=== PATIENT | female | born 1950 | race Caucasian/White ===

== ENCOUNTER 2017-02-10 15:00 | Inpatient (IN) | payer OTHER ==
[~2017-02-10] VITALS: Ht 154.9 cm; Wt 109.1 kg
[2017-02-16] MEDS ORDERED: LOVA40TA2 PO (14:18)
[2017-02-16] MEDS ORDERED: ROSU10TA PO (14:18)
[2017-02-16] MEDS ORDERED: LANS30CA16 PO (14:18)
[2017-02-16] MEDS ORDERED: HYDR-63 PO (14:18)
[2017-02-16] MEDS ORDERED: OMEP-110 PO (14:18)
[2017-02-16 14:19] VITALS: BP 154/70
[2017-02-24] MEDS ORDERED: BUPIVACAINE/PF 0.25% ONE (06:01)
[2017-02-24] MEDS ORDERED: BUPIVACAINE/PF-EPI 0.5% 1:200K ONE (06:01)
[2017-02-24] MEDS ORDERED: THROMBIN 5,000 UNIT VIAL TP ONE (06:01)
[2017-02-24] MEDS ORDERED: BACITRACIN 50,000 UNIT ONE (06:02)
[2017-02-24] MEDS ORDERED: LACTATED RINGERS 1,000 ML IV SCH (06:13)
[2017-02-24] MEDS ORDERED: KETAMINE 10 MG/ML, 20ML ONE (06:39)
[2017-02-24] MEDS ORDERED: FENTANYL PF 250 MCG/5ML ONE (06:40)
[2017-02-24] MEDS ORDERED: PROPOFOL 10 MG/ML, 20ML ONE (07:03)
[2017-02-24] MEDS ORDERED: ONDANSETRON 2MG/ML, 2ML ONE (07:03)
[2017-02-24] MEDS ORDERED: METOCLOPRAMIDE 5 MG/ML, 2ML ONE (07:03)
[2017-02-24] MEDS ORDERED: PROPOFOL 10 MG/ML, 50ML ONE (07:03)
[2017-02-24] MEDS ORDERED: ROCURONIUM 10 MG/ML ONE (07:03)
[2017-02-24] MEDS ORDERED: CEFAZOLIN 1,000 MG ONE (07:03)
[2017-02-24] MEDS ORDERED: SUCCINYLCHOLINE 20 MG/ML, 10ML ONE (07:03)
[2017-02-24] MEDS ORDERED: LABETALOL 5MG/ML, 20ML IV PRN (08:30)
[2017-02-24] MEDS ORDERED: hydrALAzine 20 MG/ML, 1ML IV PRN (08:30)
[2017-02-24] MEDS ORDERED: MIDAZOLAM 1 MG/ML, 2ML IV PRN (08:30)
[2017-02-24] MEDS ORDERED: ONDANSETRON 2MG/ML, 2ML IVPush PRN ×2 (08:30→10:30)
[2017-02-24] MEDS ORDERED: FENTANYL PF 100 MCG/2ML IV PRN (08:30)
[2017-02-24] MEDS ORDERED: OXYcodone 5 MG/5 ML ORAL.SOL UDC PO PRN (08:30)
[2017-02-24] MEDS ORDERED: FENTANYL PF 100 MCG/2ML ONE (09:49)
[2017-02-24] MEDS ORDERED: FENTANYL PF 100 MCG/2ML EPIDPUSH ONE (09:52)
[2017-02-24] MEDS ORDERED: morphine SULFATE 10 MG/ML, 1ML IVPush PRN (10:30)
[2017-02-24] MEDS ORDERED: BISACODYL 10 MG SUPP PR PRN (10:30)
[2017-02-24] MEDS ORDERED: CYCLOBENZAPRINE 10 MG TABLET PO PRN (10:30)
[2017-02-24] MEDS ORDERED: SENNA/DOCUSATE TABLET PO PRN (10:30)
[2017-02-24] MEDS ORDERED: PROMETHAZINE 25 MG/ML, 1ML IM PRN (10:30)
[2017-02-24] MEDS ORDERED: DIPHENHYDRAMINE 50 MG/ML, 1ML IVPush PRN (10:30)
[2017-02-24] MEDS ORDERED: PHARMACY MAY ADJ FOR RENAL FX MC PRN (10:30)
[2017-02-24] MEDS ORDERED: HYDROmorphone 2 MG/ML, 1ML ONE (10:45)
[2017-02-24] MEDS: HYDROmorphone 1 MG/ML, 1ML IV PRN ×5 (10:57→11:41)
[2017-02-24] MEDS: D5%-0.9% NACL+KCL 20MEQ 1,000 ML IV SCH ×2 (13:51→23:43)
[2017-02-24] MEDS: OXYcodone IR 5MG TABLET PO PRN ×4 (14:57→23:29)
[2017-02-24] MEDS: CEFAZOLIN PMX 1GM/50ML 50 ML IVPB SCH ×2 (16:31→23:43)
[2017-02-24] MEDS: LOVASTATIN 40 MG TABLET PO SCH (19:56)
[2017-02-24] MEDS: ATORVASTATIN 20 MG TABLET PO SCH (19:56)
[2017-02-24] MEDS: SODIUM CHLORIDE FLUSH 10ML SYR IVF SCH (19:57)
[2017-02-24 20:24] VITALS: BP 117/67
[2017-02-24 23:20] VITALS: BP 106/64
[2017-02-25 03:25] VITALS: BP 103/66
[2017-02-25] MEDS: OXYcodone IR 5MG TABLET PO PRN ×6 (03:49→21:11)
[2017-02-25 06:58] VITALS: BP 121/78
[2017-02-25] MEDS: SODIUM CHLORIDE FLUSH 10ML SYR IVF SCH ×2 (08:42→20:19)
[2017-02-25] MEDS: OMEPRAZOLE 20 MG CAPSULE.DR PO SCH (08:42)
[2017-02-25] MEDS: PANTOPROZOLE 40MG TABLET PO SCH (08:46)
[2017-02-25] MEDS: D5%-0.9% NACL+KCL 20MEQ 1,000 ML IV SCH ×2 (11:52→20:00)
[2017-02-25 13:28] VITALS: BP 97/58
[2017-02-25 18:26] VITALS: BP 105/63
[2017-02-25] MEDS: LOVASTATIN 40 MG TABLET PO SCH (21:00)
[2017-02-25] MEDS: ATORVASTATIN 20 MG TABLET PO SCH (21:00)
[2017-02-26 00:49] VITALS: BP 107/66
[2017-02-26] MEDS: OXYcodone IR 5MG TABLET PO PRN ×5 (01:14→20:41)
[2017-02-26 06:35] VITALS: BP 101/66
[2017-02-26] MEDS: OMEPRAZOLE 20 MG CAPSULE.DR PO SCH (08:57)
[2017-02-26] MEDS: PANTOPROZOLE 40MG TABLET PO SCH (08:58)
[2017-02-26 13:30] VITALS: BP 106/67
[2017-02-26] MEDS: MAGNESIUM CITRATE 300ML ORAL SOL PO PRN (16:00)
[2017-02-26] MEDS: ATORVASTATIN 20 MG TABLET PO SCH (20:02)
[2017-02-26] MEDS: LOVASTATIN 40 MG TABLET PO SCH (20:02)
[2017-02-26 20:05] VITALS: BP 95/49
[2017-02-27] MEDS: OXYcodone IR 5MG TABLET PO PRN ×5 (02:10→18:16)
[2017-02-27 02:58] VITALS: BP 102/58
[2017-02-27 06:57] VITALS: BP 127/68
[2017-02-27] MEDS ORDERED: CYCL-259 PO (09:11)
[2017-02-27] MEDS ORDERED: OXYC5CAP4 PO (09:11)
[2017-02-27] MEDS ORDERED: DOXY100C2 PO (09:14)
[2017-02-27] MEDS: PANTOPROZOLE 40MG TABLET PO SCH (09:25)
[2017-02-27] MEDS: OMEPRAZOLE 20 MG CAPSULE.DR PO SCH (09:25)
[2017-02-27] MEDS: MAGNESIUM CITRATE 300ML ORAL SOL PO PRN (11:03)
[2017-02-27 14:30] VITALS: BP 116/67
[2017-02-27] MEDS ORDERED: KETOROLAC 30 MG/1 ML IM ONE (17:00)
== END 2017-02-27 19:30 | disposition home or self-care (01) | DRG 460 ==
LOC: ORIP 02-24 05:37 → 4NOR 02-24 12:22
PROVIDERS: ADMIT Neurological Surgery; ATTEND Neurological Surgery
PROC: 01NR0ZZ Release Sacral Nerve, Open Approach (ICD-10-PCS; 2017-02-24)
PROC: 4A11X4G Monitoring of Peripheral Nervous Electrical Activity, Intraoperative, External Approach (ICD-10-PCS; 2017-02-24)
PROC: 01NB0ZZ Release Lumbar Nerve, Open Approach (ICD-10-PCS; 2017-02-24)
PROC: 0ST20ZZ Resection of Lumbar Vertebral Disc, Open Approach (ICD-10-PCS; 2017-02-24)
PROC: 00UT0JZ Supplement Spinal Meninges with Synthetic Substitute, Open Approach (ICD-10-PCS; 2017-02-24)
PROC: 0SG00AJ Fusion of Lumbar Vertebral Joint with Interbody Fusion Device, Posterior Approach, Anterior Column, Open Approach (ICD-10-PCS; principal; 2017-02-24 07:00)
DX: M48.06 Spinal stenosis, lumbar region (principal); Z68.42 Body mass index [BMI] 45.0-49.9, adult; M43.16 Spondylolisthesis, lumbar region; E66.01 Morbid (severe) obesity due to excess calories; G89.29 Other chronic pain; F17.210 Nicotine dependence, cigarettes, uncomplicated; K21.9 Gastro-esophageal reflux disease without esophagitis; M54.17 Radiculopathy, lumbosacral region; Z88.2 Allergy status to sulfonamides; Z88.6 Allergy status to analgesic agent; Z88.1 Allergy status to other antibiotic agents; Z88.7 Allergy status to serum and vaccine; Z88.8 Allergy status to other drugs, medicaments and biological substances; M48.07 Spinal stenosis, lumbosacral region
CPT/HCPCS: 36415; 72100; 82962; 85025; C1713; J0690; J1170; J2405; J2704; J3010; J3490; C1751; C1762; C1781; J0330; J2765; J3480

== ENCOUNTER → 2017-02-16 | Outpatient (CLI) | payer OTHER ==
[~2017-02-16] MED LIST: HYDR-63 PO; LANS30CA16 PO; LOVA40TA2 PO; OMEP-110 PO; ROSU10TA PO
[2017-02-16 15:03] LABS: PATH.CAST-FLAG NOT PRESENT; SPERM-FLAG NOT PRESENT; SRC-FLAG NOT PRESENT; XTAL-FLAG NOT PRESENT; YLC-FLAG NOT PRESENT
[2017-02-16 15:11] LABS: BLOOD UREA NITROGEN 18 mg/dL (7-18)
== END | disposition home or self-care (01) ==
LOC: STAR 13:20
PROVIDERS: ATTEND Neurological Surgery
DX: Z01.818 Encounter for other preprocedural examination (principal); J18.9 Pneumonia, unspecified organism; M51.36 Other intervertebral disc degeneration, lumbar region; R79.1 Abnormal coagulation profile
CPT/HCPCS: 36415; 71020; 80048; 81001; 85025; 85610; 85730; 87077; 87086

== ENCOUNTER → 2017-02-22 | Outpatient (CLI) | payer OTHER ==
[~2017-02-22] MED LIST changes: +REGADENOSON 0.4 MG/5 ML SYRINGE ONE
== END | disposition home or self-care (01) ==
LOC: CFH 11:46
PROVIDERS: ATTEND Internal Medicine Cardiovascular Disease
DX: Z01.810 Encounter for preprocedural cardiovascular examination (principal)
CPT/HCPCS: 78452; 93017; A9502; J2785

== ENCOUNTER → 2017-06-13 | Outpatient (CLI) | payer OTHER ==
[~2017-06-13] MED LIST changes: +CYCL-259 PO; +DOXY100C2 PO; -LANS30CA16 PO; +LANS30CA60 PO; +OXYC5CAP2 PO; -REGADENOSON 0.4 MG/5 ML SYRINGE ONE
== END | disposition home or self-care (01) ==
LOC: RAD 09:36
PROVIDERS: ATTEND Physician Assistant Surgical
DX: M51.36 Other intervertebral disc degeneration, lumbar region (principal); M43.16 Spondylolisthesis, lumbar region; M47.896 Other spondylosis, lumbar region; I70.0 Atherosclerosis of aorta
CPT/HCPCS: 72110

== ENCOUNTER 2017-10-28 05:29 | Day surgery (SDC) | payer OTHER ==
[~2017-10-28] VITALS: Ht 154.9 cm; Wt 101.0 kg
[2017-10-28] MEDS ORDERED: LACTATED RINGERS 1,000 ML IV SCH (05:56)
[2017-10-28 06:19] VITALS: BP 130/82
[2017-10-28] MEDS ORDERED: FENTANYL PF 100 MCG/2ML ONE ×2 (06:46→07:20)
[2017-10-28] MEDS ORDERED: CEFAZOLIN 1,000 MG ONE (06:54)
[2017-10-28] MEDS ORDERED: PROPOFOL 10 MG/ML, 20ML ONE (06:54)
[2017-10-28] MEDS ORDERED: DEXAMETHASONE 4 MG/ML, 5ML ONE (06:54)
[2017-10-28] MEDS ORDERED: ONDANSETRON 2MG/ML, 2ML ONE (06:54)
[2017-10-28] MEDS ORDERED: OXYcodone 5 MG/5 ML ORAL.SOL UDC PO PRN (07:00)
[2017-10-28] MEDS ORDERED: HYDROcodone/APAP 7.5-325MG/15ML UDC PO PRN (07:00)
[2017-10-28] MEDS ORDERED: FENTANYL PF 100 MCG/2ML IV PRN (07:00)
[2017-10-28] MEDS ORDERED: ONDANSETRON 2MG/ML, 2ML IVPush PRN (07:00)
[2017-10-28] MEDS ORDERED: ACETAMINOPHEN 325 MG TABLET PO PRN (07:00)
[2017-10-28] MEDS ORDERED: HYDROmorphone 1 MG/ML, 1ML IV PRN (07:00)
[2017-10-28] MEDS ORDERED: OXYcodone 5 MG/5 ML ORAL.SOL UDC ONE (07:36)
== END 2017-10-28 09:05 | disposition home or self-care (01) ==
LOC: OUT 05:29
PROVIDERS: ATTEND Podiatrist
DX: L60.0 Ingrowing nail (principal); E11.9 Type 2 diabetes mellitus without complications; K21.9 Gastro-esophageal reflux disease without esophagitis; E66.01 Morbid (severe) obesity due to excess calories; Z68.41 Body mass index [BMI] 40.0-44.9, adult
CPT/HCPCS: 11750; 82962; J0690; J1100; J2405; J2704; J3010; J7120

== ENCOUNTER → 2018-05-18 | Outpatient (CLI) | payer OTHER ==
[~2018-05-18] MED LIST changes: +OMNIPAQUE 350 MG/ML, 100ML BOTTLE ONE
== END | disposition home or self-care (01) ==
LOC: CFH 15:31
PROVIDERS: ATTEND Nurse Practitioner
DX: R91.8 Other nonspecific abnormal finding of lung field (principal); R93.8 Abnormal findings on diagnostic imaging of other specified body structures; R59.9 Enlarged lymph nodes, unspecified; E11.9 Type 2 diabetes mellitus without complications
CPT/HCPCS: 71260; 82565; Q9967

== ENCOUNTER → 2018-06-01 | Outpatient (CLI) | payer OTHER ==
[~2018-06-01] MED LIST changes: -OMNIPAQUE 350 MG/ML, 100ML BOTTLE ONE
== END | disposition home or self-care (01) ==
LOC: PETCFH 13:06
PROVIDERS: ATTEND Internal Medicine
DX: C78.7 Secondary malignant neoplasm of liver and intrahepatic bile duct (principal); C80.1 Malignant (primary) neoplasm, unspecified
CPT/HCPCS: 78815; A9552

== ENCOUNTER → 2018-06-02 | Outpatient (CLI) | payer OTHER ==
[~2018-06-02] MED LIST changes: +GADOBUTROL 10 MMOL/10 ML PFS ONE
== END | disposition home or self-care (01) ==
LOC: CFH 09:11
PROVIDERS: ATTEND Internal Medicine
DX: C34.90 Malignant neoplasm of unspecified part of unspecified bronchus or lung (principal); E11.9 Type 2 diabetes mellitus without complications; F17.200 Nicotine dependence, unspecified, uncomplicated
CPT/HCPCS: 70553; A9585

== ENCOUNTER 2018-07-04 07:33 | Day surgery (SDC) | payer OTHER ==
[~2018-07-04] VITALS: Ht 154.9 cm; Wt 101.9 kg
[~2018-07-04 07:33] MED LIST changes: -GADOBUTROL 10 MMOL/10 ML PFS ONE
[2018-07-04 08:08] VITALS: BP 146/79
[2018-07-04] MEDS ORDERED: SODIUM CHLORIDE 0.9% 1,000 ML IV SCH (08:26)
[2018-07-04] MEDS ORDERED: VANCOMYCIN PMX 1GM/200ML 200 ML IV ONE (08:29)
[2018-07-04] MEDS ORDERED: LIDOCAINE-MPF 2%, 2ML ONE (08:37)
[2018-07-04] MEDS ORDERED: DIPHENHYDRAMINE 50 MG/ML, 1ML ONE (09:13)
[2018-07-04] MEDS ORDERED: MIDAZOLAM 1 MG/ML, 5ML ONE (09:13)
[2018-07-04] MEDS ORDERED: FENTANYL PF 100 MCG/2ML ONE (09:13)
[2018-07-04] MEDS ORDERED: NALOXONE 1 MG/ML, 2ML ONE (09:14)
[2018-07-04] MEDS ORDERED: FLUMAZENIL 0.1 MG/1 ML, 5ML ONE (09:14)
[2018-07-04] MEDS ORDERED: methylPREDNISolone SOD SUCC 125 MG/2 ML ONE (09:54)
== END 2018-07-04 12:55 | disposition home or self-care (01) ==
LOC: OUT 07:33
PROVIDERS: ATTEND Internal Medicine Hematology & Oncology
DX: Z45.2 Encounter for adjustment and management of vascular access device (principal); C34.11 Malignant neoplasm of upper lobe, right bronchus or lung; F17.210 Nicotine dependence, cigarettes, uncomplicated; E11.9 Type 2 diabetes mellitus without complications; I10 Essential (primary) hypertension; Z98.890 Other specified postprocedural states; Z88.1 Allergy status to other antibiotic agents; Z88.0 Allergy status to penicillin; Z88.8 Allergy status to other drugs, medicaments and biological substances
CPT/HCPCS: 36561; 76937; 77001; 99156; 99157; C1788; J1200; J1642; J2250; J2930; J3010; J3490; J7030; J2310

== ENCOUNTER → 2018-07-10 | Outpatient (CLI) | payer OTHER | END | disposition home or self-care (01) | LOC: CFH 10:42 | PROVIDERS: ATTEND Internal Medicine Hematology & Oncology | DX: C34.11 Malignant neoplasm of upper lobe, right bronchus or lung (principal); E11.9 Type 2 diabetes mellitus without complications; F17.210 Nicotine dependence, cigarettes, uncomplicated; Z85.118 Personal history of other malignant neoplasm of bronchus and lung; Z85.05 Personal history of malignant neoplasm of liver | CPT/HCPCS: 71046 ==

== ENCOUNTER → 2018-08-04 | Outpatient (CLI) | payer OTHER ==
[~2018-08-04] MED LIST changes: +OMNIPAQUE 350 MG/ML, 100ML BOTTLE ONE
[2018-08-04 14:13] LABS: CREATININE 0.69 mg/dL (0.55-1.02)
== END | disposition home or self-care (01) ==
LOC: RAD 13:19
PROVIDERS: ATTEND Internal Medicine Hematology & Oncology
DX: C34.11 Malignant neoplasm of upper lobe, right bronchus or lung (principal); K76.9 Liver disease, unspecified; D27.0 Benign neoplasm of right ovary
CPT/HCPCS: 36415; 71260; 74177; 82565; Q9967

== ENCOUNTER → 2018-11-07 | Outpatient (CLI) | payer OTHER ==
[~2018-11-07] MED LIST changes: +GADOBUTROL 7.5 MMOL/7.5 ML VIAL ONE; +GLUCAGON 1 MG ONE
== END | disposition home or self-care (01) ==
LOC: CFH 08:57
PROVIDERS: ATTEND Internal Medicine Hematology & Oncology
DX: R91.1 Solitary pulmonary nodule (principal); R59.0 Localized enlarged lymph nodes; D73.89 Other diseases of spleen; R91.8 Other nonspecific abnormal finding of lung field; C78.7 Secondary malignant neoplasm of liver and intrahepatic bile duct
CPT/HCPCS: 70553; 71260; 74177; A9585; Q9967; J1610

== ENCOUNTER → 2018-11-24 | Outpatient (CLI) | payer MEDICARE, OTHER ==
[~2018-11-24] MED LIST changes: -GADOBUTROL 7.5 MMOL/7.5 ML VIAL ONE; -GLUCAGON 1 MG ONE; -OMNIPAQUE 350 MG/ML, 100ML BOTTLE ONE
== END | disposition home or self-care (01) ==
LOC: ROC 08:03
PROVIDERS: ATTEND Radiology Radiation Oncology
DX: C34.11 Malignant neoplasm of upper lobe, right bronchus or lung (principal); K21.9 Gastro-esophageal reflux disease without esophagitis; E78.5 Hyperlipidemia, unspecified; Z90.710 Acquired absence of both cervix and uterus
CPT/HCPCS: 99214; G0463

== ENCOUNTER → 2019-01-24 | Outpatient (CLI) | payer MEDICARE ==
[~2019-01-24] MED LIST changes: -ROSU10TA PO; +ROSU10TA2 PO
== END | disposition home or self-care (01) ==
LOC: ROC 10:11
PROVIDERS: ATTEND Radiology Radiation Oncology
DX: Z08 Encounter for follow-up examination after completed treatment for malignant neoplasm (principal); C34.11 Malignant neoplasm of upper lobe, right bronchus or lung
CPT/HCPCS: 99212; G0463

== ENCOUNTER 2019-02-23 08:57 | Outpatient (CLI) | payer MEDICARE | END 2019-02-23 23:59 | disposition home or self-care (01) | LOC: ROC 08:57 | PROVIDERS: ATTEND Radiology Radiation Oncology | DX: C78.7 Secondary malignant neoplasm of liver and intrahepatic bile duct (principal); E11.9 Type 2 diabetes mellitus without complications; Z88.0 Allergy status to penicillin; Z88.8 Allergy status to other drugs, medicaments and biological substances | CPT/HCPCS: 99212; G0463 ==

== ENCOUNTER → 2019-04-24 | Outpatient (CLI) | payer MEDICARE ==
[~2019-04-24] MED LIST changes: +OMNIPAQUE 350 MG/ML, 100ML BOTTLE ONE
== END | disposition home or self-care (01) ==
LOC: CFH 11:42
PROVIDERS: ATTEND Internal Medicine Hematology & Oncology
DX: C78.7 Secondary malignant neoplasm of liver and intrahepatic bile duct (principal); C34.11 Malignant neoplasm of upper lobe, right bronchus or lung; E27.8 Other specified disorders of adrenal gland; N28.1 Cyst of kidney, acquired; M51.36 Other intervertebral disc degeneration, lumbar region; J92.9 Pleural plaque without asbestos; M85.88 Other specified disorders of bone density and structure, other site
CPT/HCPCS: 74160; Q9967